=== PATIENT | male | born 1950 | race Hispanic/Latino ===

== ENCOUNTER 2018-06-05 05:16 | Inpatient (IN) | payer MEDICARE ==
[~2018-06-05] VITALS: Ht 167.6 cm; Wt 91.3 kg
[2018-06-05] VITALS (19 sets, daily range): BP systolic 114–189; BP diastolic 30–98
[2018-06-05 05:53] LABS: BASOPHILS % (AUTO) 0.6 % (0.0-5.0); EOSINOPHILS % (AUTO) 2.6 % (0.0-8.0); HEMATOCRIT 36.7 % (42-54); LYMPHOCYTES % (AUTO) 19.7 % (21.0-51.0); MEAN CORPUSCULAR HEMOGLOBIN 31.3 pg (27.0-33.0); MEAN CORPUSCULAR HGB CONC 32.8 g/dL (32.0-36.0); MEAN CORPUSCULAR VOLUME 95.6 fL (79-99); MONOCYTES % (AUTO) 12.4 % (3.0-13.0); NEUTROPHILS % (AUTO) 64.7 % (40.0-77.0); PLATELET COUNT (AUTO) 174 K/uL (130-400); RED BLOOD CELL COUNT(AUTO) 3.84 MIL/uL (4.50-6.20); RED CELL DISTRIBUTION WIDTH 15.8 % (11.0-15.5); WHITE BLOOD COUNT (AUTO) 9.7 K/uL (4.8-10.8)
[2018-06-05 06:06] LABS: CREATININE 6.3 mg/dL (0.5-1.5); POTASSIUM 4.3 mmol/L (3.5-5.1)
[2018-06-05 06:11] LABS: ALBUMIN 3.3 g/dL (3.5-5.0); B-TYPE NATRIURETIC PEPTIDE 1440 pg/mL (0-100); BILIRUBIN,TOTAL 0.3 mg/dL (0.2-1.0)
[2018-06-05] MEDS: PANTOPRAZOLE SODIUM 40 MG TABLET.DR PO SCH ×2 (08:02→17:04)
[2018-06-05] MEDS ORDERED: GLUCAGON 1MG KIT 1 MG ML IM PRN (08:15)
[2018-06-05] MEDS ORDERED: ACETAMINOPHEN 325 MG TAB PO PRN ×2 (08:15)
[2018-06-05] MEDS ORDERED: DEXTROSE 50%-WATER 50 ML DISP.SYRIN IV PRN (08:15)
[2018-06-05] MEDS ORDERED: SODIUM CHLORIDE 0.9% 10 ML VIAL IVP SCH (08:15)
[2018-06-05] MEDS ORDERED: ONDANSETRON HCL 4 MG/2 ML VIAL IVP PRN (08:15)
[2018-06-05] MEDS: ENOXAPARIN SODIUM 30 MG/0.3 ML SQ SCH (09:00)
--- NOTE | 2018-06-05 10:20 | NUR ---
PT WAS ADMITTED AND WILL BE HAVING DIALYSIS TODAY AND NURSE HERE TO DO DIALYSIS.
[2018-06-05] MEDS: INSULIN R PO SS1/2 SQ SCH ×3 (11:30→21:00)
[2018-06-05] MEDS ORDERED: APIX5TAB PO (12:10)
[2018-06-05] MEDS ORDERED: CALC667C10 PO (12:10)
[2018-06-05] MEDS ORDERED: METO200T49 PO (12:10)
[2018-06-05] MEDS ORDERED: PRAV40TA3 PO (12:10)
[2018-06-05 14:16] LABS: CREATINE KINASE, TOTAL 96 U/L (21-232); MYOGLOBIN 191 ng/mL (10-92); TROPONIN I < 0.04 ng/mL (0.00-0.06)
[2018-06-05] MEDS: PNEUMOCOCCAL VACCINE POLYVALENT 0.5 ML/VIAL [PPV] IM SCH ×2 (16:01→16:06)
--- NOTE | 2018-06-05 16:45 | NUR ---
DR. CORONEL HERE AND ORDERS NOTED, PT IS TO BE TRANSFERRED TO ROOM 230.
[2018-06-05] MEDS: CALCIUM ACETATE 667 MG CAPSULE PO SCH (17:04)
[2018-06-05] MEDS ORDERED: INSU100V12 SQ (18:08)
--- NOTE | 2018-06-05 18:22 | NUR ---
ARRIVAL TO ROOM 230 REPORT RECEIVED FROM AMEE BILLINGS RN. PT IS AAOX3 DENIES CP DENIES SOB DENIES NV. AMBULATING IN ROOM. FAMILY IS IN ROOM.
--- NOTE | 2018-06-05 20:00 | NUR ---
ASSESSMENT NOTE AAOX4 SITTING UP IN BED WITH SPOUSE AT THE BEDSIDE. BREATHING REGULAR AND UNLABORED ON ROOM AIR. ASSESSMENT COMPLETED. HEART BRADEN REPORTED 40'S PATIENT ASYMPTOMATIC. DENIES DIZZINESS, WEAKNESS, OR NAUSEA. DENIES PAIN. PLAN OF CARE DISCUSSED WITH PATIENT. REINFORCED SAFETY INSTRUCTION. NO ACUTE SIGNS OR SYMPTOMS OF DISTRESS NOTED. CALL LIGHT IN REACH
[2018-06-05] MEDS: SIMVASTATIN 20 MG TABLET PO SCH (20:37)
[2018-06-05] MEDS: APIXABAN 5 MG TABLET PO SCH (20:37)
[2018-06-05] MEDS ORDERED: ACETAMINOPHEN 325 MG TAB PO ONE (20:45)
[2018-06-05] MEDS ORDERED: DIPHENHYDRAMINE HCL 25 MG CAPSULE PO ONE (20:45)
--- NOTE | 2018-06-05 20:45 | NUR ---
BRADYCARDIA PATIENT HEART RATE SUSTAINED 30'S. CALLED DR CORONEL AND NOTIFIED OF BRADYCARDIA. ASYMPTOMATIC. PATIENT REQUEST SLEEP AID. ORDERS RECEIVED AND ENTERED INTO SYSTEM.
[2018-06-05] MEDS: INSULIN HUMULIN R 100 UNIT/ML 3ML SQ SCH (21:00)
[2018-06-05 22:28] LABS: CREATINE KINASE, TOTAL 92 U/L (21-232); MYOGLOBIN 211 ng/mL (10-92); TROPONIN I < 0.04 ng/mL (0.00-0.06)
[2018-06-06 03:40] VITALS: BP 152/62
--- NOTE | 2018-06-06 03:47 | NUR ---
LABS PATIENT REFUSING AM LABS. SPOKE TO PATIENT REGARDING ACUTE CARE SETTING AND DIAGNOSTICS LABS PROVIDE. PATIENT THEN AGREED FOR LABS.
[2018-06-06 04:07] LABS: HEMATOCRIT 37.1 % (42-54); MEAN CORPUSCULAR HEMOGLOBIN 31.8 pg (27.0-33.0); MEAN CORPUSCULAR HGB CONC 33.7 g/dL (32.0-36.0); MEAN CORPUSCULAR VOLUME 94.5 fL (79-99); NUCLEATED RED BLOOD CELLS 0.1 % (0.0-0.19); PLATELET COUNT (AUTO) 160 K/uL (130-400); RED BLOOD CELL COUNT(AUTO) 3.92 MIL/uL (4.50-6.20); RED CELL DISTRIBUTION WIDTH 15.7 % (11.0-15.5); WHITE BLOOD COUNT (AUTO) 9.5 K/uL (4.8-10.8)
[2018-06-06 04:14] LABS: HEMOGLOBIN A1C 8.1 % (4.0-6.0)
[2018-06-06 04:17] LABS: CREATININE 6.6 mg/dL (0.5-1.5); PHOSPHORUS 5.5 mg/dL (2.5-4.9); POTASSIUM 4.8 mmol/L (3.5-5.1)
[2018-06-06] MEDS: INSULIN HUMULIN R 100 UNIT/ML 3ML SQ SCH ×4 (05:36→21:00)
[2018-06-06] MEDS: INSULIN R PO SS1/2 SQ SCH ×4 (05:37→21:00)
[2018-06-06 07:49] VITALS: BP 151/60
[2018-06-06] MEDS: ENOXAPARIN SODIUM 30 MG/0.3 ML SQ SCH ×2 (09:00→09:35)
[2018-06-06] MEDS: FOLIC ACID/VITAMIN B COMP W-C 1 MG CAPSULE PO SCH (09:35)
[2018-06-06] MEDS: APIXABAN 5 MG TABLET PO SCH ×2 (09:35→21:43)
[2018-06-06] MEDS: VITAMIN E 400 UNIT CAPSULE PO SCH (09:35)
[2018-06-06] MEDS: CALCIUM ACETATE 667 MG CAPSULE PO SCH ×3 (09:36→17:04)
[2018-06-06 12:04] VITALS: BP 161/65
[2018-06-06] MEDS ORDERED: AMLODIPINE BESYLATE 5 MG TAB PO SCH (14:45)
--- NOTE | 2018-06-06 15:58 | NUR ---
cm note met with patient and states resides at home with spouse, independent and active at home. no dme. pt drives dc plan is back to home no needs. Addendum: 06/06/18 at 1559 by JASMINA HILLS CM Amended: Links added.
[2018-06-06 17:02] VITALS: BP 160/71
[2018-06-06 19:00] VITALS: BP 163/59
--- NOTE | 2018-06-06 19:45 | NUR ---
Dr. Rasmussen was called and notifeid about the consult he said he is aware of the consult because it was already called today, no new order received.
[2018-06-06] MEDS: SIMVASTATIN 20 MG TABLET PO SCH (21:43)
[2018-06-06 23:00] VITALS: BP 123/47
--- NOTE | 2018-06-07 01:10 | NUR ---
Dr. Rasmussen was called and notiifed of pt. new onset of afib rvr and aflutter.Received new order.Order carried out.
[2018-06-07] MEDS ORDERED: DILTIAZEM HCL 5 MG/ML 10 ML VIAL IV ONE (01:11)
[2018-06-07] MEDS ORDERED: DILTIAZEM 125MG+100 ML NS 125 ML IV SCH (01:15)
[2018-06-07] MEDS: DILTIAZEM HCL 5 MG/ML 10 ML VIAL IV SCH (01:29)
[2018-06-07 03:00] VITALS: BP 120/48
[2018-06-07 03:52] LABS: HEMATOCRIT 35.7 % (42-54); MEAN CORPUSCULAR HEMOGLOBIN 31.6 pg (27.0-33.0); MEAN CORPUSCULAR VOLUME 95.9 fL (79-99); PLATELET COUNT (AUTO) 177 K/uL (130-400); RED BLOOD CELL COUNT(AUTO) 3.72 MIL/uL (4.50-6.20); RED CELL DISTRIBUTION WIDTH 15.9 % (11.0-15.5); WHITE BLOOD COUNT (AUTO) 11.3 K/uL (4.8-10.8)
[2018-06-07 04:15] LABS: HEPATITIS Bs ANTIGEN SCREEN P Negative (Negative)
[2018-06-07 04:25] LABS: POTASSIUM 4.5 mmol/L (3.5-5.1); THYROID STIMULATING HORMONE 2.88 uIU/mL (0.36-3.74)
[2018-06-07] MEDS: PANTOPRAZOLE SODIUM 40 MG TABLET.DR PO SCH (04:53)
[2018-06-07] MEDS: INSULIN HUMULIN R 100 UNIT/ML 3ML SQ SCH ×4 (05:55→21:59)
[2018-06-07] MEDS: INSULIN R PO SS1/2 SQ SCH ×4 (05:56→21:00)
--- NOTE | 2018-06-07 07:44 | NUR ---
Pt. kept NPO since post midnight and demonstrated understanding,daughter to bedside.Pt. remained on CArdizem drip .Bedside report given to incoming NOD using SBAR all questions answered.
--- NOTE | 2018-06-07 07:50 | NUR ---
ASSESSMENT ENCOUNTERED PT UP IN CHAIR, A&OX3, CALM COOPERATIVE AND DOES NOT APPEAR TO BE IN ANY DISTRESS NOR ANY NEURO DEFICITS PRESENT. PT DENIES PAIN, SOB, NAUSEA. PT IS AMBULATORY, GAIT STEADY AND STRONG WITH STAND BY ASSIST. PT IS NPO FOR LEXISCAN. CALL LIGHT WITHIN REACH, FAMILY AT BEDSIDE.
[2018-06-07 07:57] VITALS: BP 120/55
[2018-06-07] MEDS: CALCIUM ACETATE 667 MG CAPSULE PO SCH ×3 (08:00→17:00)
[2018-06-07] MEDS ORDERED: REGADENOSON 0.4 MG/5 ML PF SYG IVP SCH (08:00)
[2018-06-07] MEDS: APIXABAN 5 MG TABLET PO SCH ×2 (09:00→20:20)
[2018-06-07] MEDS: METOPROLOL TARTRATE 25 MG TAB PO SCH ×2 (09:00→20:20)
[2018-06-07] MEDS: AMLODIPINE BESYLATE 5 MG TAB PO SCH (09:00)
[2018-06-07] MEDS: VITAMIN E 400 UNIT CAPSULE PO SCH (09:00)
[2018-06-07] MEDS: FOLIC ACID/VITAMIN B COMP W-C 1 MG CAPSULE PO SCH (09:00)
[2018-06-07 11:58] VITALS: BP 137/55
[2018-06-07 16:34] VITALS: BP 165/58
[2018-06-07 19:00] VITALS: BP 135/58
--- NOTE | 2018-06-07 20:06 | NUR ---
quality assurance/r&d lab technician called and notified pt HR converted to Afib /aflutter -120-140's.Went to check on patient ,he is pacing in his room and talking to someone on the phone.Advised pt. to sit and relax because his HR is high and irregular.pt easily do as advised.Pt. denies chestpain or any discomfort he said he feels okay.Will continue to monitor pt.
[2018-06-07] MEDS: SIMVASTATIN 20 MG TABLET PO SCH (20:20)
[2018-06-07 23:00] VITALS: BP 108/76
[2018-06-08] MEDS: DILTIAZEM HCL 5 MG/ML 10 ML VIAL IV SCH ×2 (01:15→20:20)
[2018-06-08 03:00] VITALS: BP 143/54
[2018-06-08 03:51] LABS: MEAN CORPUSCULAR HEMOGLOBIN 31.6 pg (27.0-33.0); MEAN CORPUSCULAR HGB CONC 33.3 g/dL (32.0-36.0); MEAN CORPUSCULAR VOLUME 94.8 fL (79-99); NUCLEATED RED BLOOD CELLS 0.1 % (0.0-0.19); PLATELET COUNT (AUTO) 163 K/uL (130-400); RED CELL DISTRIBUTION WIDTH 15.4 % (11.0-15.5); WHITE BLOOD COUNT (AUTO) 9.9 K/uL (4.8-10.8)
[2018-06-08 04:04] LABS: EOSINOPHILS % (MANUAL) 1 % (1-6); LYMPHOCYTES % (MANUAL) 24 % (22-44); MONOCYTES % (MANUAL) 6 % (2-9); SEGMENTED NEUTROPHILS % 69 % (40-70)
[2018-06-08 04:05] LABS: MAN.DIFF COMMENT-IMPRESSION MANUAL DIFFERENTIAL
[2018-06-08 04:07] LABS: CREATININE 7.4 mg/dL (0.5-1.5); MAGNESIUM 2.2 mg/dL (1.80-2.40); PHOSPHORUS 5.2 mg/dL (2.5-4.9); POTASSIUM 4.7 mmol/L (3.5-5.1)
[2018-06-08] MEDS: PANTOPRAZOLE SODIUM 40 MG TABLET.DR PO SCH (06:51)
[2018-06-08 07:00] VITALS: BP 151/61
[2018-06-08] MEDS: INSULIN HUMULIN R 100 UNIT/ML 3ML SQ SCH ×4 (07:21→21:28)
[2018-06-08] MEDS: VITAMIN E 400 UNIT CAPSULE PO SCH (07:24)
[2018-06-08] MEDS: METOPROLOL TARTRATE 25 MG TAB PO SCH (07:24)
[2018-06-08] MEDS: AMLODIPINE BESYLATE 5 MG TAB PO SCH (07:24)
[2018-06-08] MEDS: CALCIUM ACETATE 667 MG CAPSULE PO SCH ×3 (07:24→16:18)
[2018-06-08] MEDS: APIXABAN 5 MG TABLET PO SCH ×2 (07:25→21:27)
[2018-06-08] MEDS: FOLIC ACID/VITAMIN B COMP W-C 1 MG CAPSULE PO SCH (07:25)
--- NOTE | 2018-06-08 08:00 | NUR ---
ASSESSMENT PT IS AAOX4 DENIES CP DENIES SOB DENIES NV NO COMPLAINTS, SITTING UPRIGHT AT BEDSIDE, HOB UP AT 35 DEGREES. AM MEDS GIVEN, TOLERATED MEAL. SPOUSE IS AT BEDSIDE, CALL LIGHT WITHIN REACH.
[2018-06-08] MEDS ORDERED: METO25PO2 MC (08:48)
[2018-06-08] MEDS ORDERED: METO25TA6 PO (08:51)
[2018-06-08 11:00] VITALS: BP 121/56
--- NOTE | 2018-06-08 12:25 | NUR ---
HR EPISODES OF ALFUTTER >[address] BENITEZ. ORDERS RECEIVED.
--- NOTE | 2018-06-08 12:26 | NUR ---
STATUS PT IS AAOX4 DENIES CP DENIES SOB DENIES NV DENIES FEELING PALPITATIONS. HE SAYS THE MONITOR IS WRONG AND HE DOENS'T HAVE A HIGH HR. I SHOWED HIM THE EKG STRIP AND LET HIM KNOW DR BENITEZ GAVE ORDERS. AWARE AND AGREES.
[2018-06-08] MEDS ORDERED: METOPROLOL TARTRATE 25 MG TAB PO SCH (12:30)
[2018-06-08 16:00] VITALS: BP 140/54
--- NOTE | 2018-06-08 17:30 | NUR ---
Nutrition Assessment: Pt triggered for nutrition screen based on LOS. Pt is on a 75 gm CCD/Renal dialysis diet with 1.5 L fluid restriction. Pt with noted non compliance with diet and fluid intake. Labs reviewed. BMI 31.8 (obese). LBM 06/06/18. Pt with no skin breakdown. RD to monitor po intake. Consult RD as needed. Addendum: 06/08/18 at [address] Amended: Links added.
[2018-06-08 19:31] VITALS: BP 150/84
[2018-06-08] MEDS: SIMVASTATIN 20 MG TABLET PO SCH (21:27)
[2018-06-08] MEDS: METOPROLOL TARTRATE 50 MG TAB PO SCH (21:27)
[2018-06-08 23:56] VITALS: BP 127/83
[2018-06-09 03:55] VITALS: BP 169/53
[2018-06-09 04:07] LABS: HEMATOCRIT 35.7 % (42-54); MEAN CORPUSCULAR HEMOGLOBIN 31.5 pg (27.0-33.0); MEAN CORPUSCULAR HGB CONC 33.2 g/dL (32.0-36.0); MEAN CORPUSCULAR VOLUME 94.9 fL (79-99); PLATELET COUNT (AUTO) 170 K/uL (130-400); RED BLOOD CELL COUNT(AUTO) 3.76 MIL/uL (4.50-6.20); RED CELL DISTRIBUTION WIDTH 15.6 % (11.0-15.5); WHITE BLOOD COUNT (AUTO) 10.7 K/uL (4.8-10.8)
[2018-06-09 04:22] LABS: MAGNESIUM 2.2 mg/dL (1.80-2.40); POTASSIUM 4.9 mmol/L (3.5-5.1)
[2018-06-09] MEDS: INSULIN HUMULIN R 100 UNIT/ML 3ML SQ SCH ×2 (06:23→11:07)
[2018-06-09] MEDS ORDERED: METO50TA18 PO (06:23)
[2018-06-09 07:00] VITALS: BP 125/52
[2018-06-09] MEDS: PANTOPRAZOLE SODIUM 40 MG TABLET.DR PO SCH (07:46)
[2018-06-09] MEDS: METOPROLOL TARTRATE 50 MG TAB PO SCH (07:46)
[2018-06-09] MEDS: APIXABAN 5 MG TABLET PO SCH (07:46)
[2018-06-09] MEDS: VITAMIN E 400 UNIT CAPSULE PO SCH (07:46)
[2018-06-09] MEDS: CALCIUM ACETATE 667 MG CAPSULE PO SCH ×2 (07:46→11:01)
[2018-06-09] MEDS: AMLODIPINE BESYLATE 5 MG TAB PO SCH (07:46)
[2018-06-09] MEDS: FOLIC ACID/VITAMIN B COMP W-C 1 MG CAPSULE PO SCH (07:46)
--- NOTE | 2018-06-09 08:00 | NUR ---
ASSESSMENT PT IS AAOX4 DENIES CP DENIES SOB DENIES NV NO COMPLAINTS. AM MEDS TAKEN. CALL LIGHT WITHIN REACH.
[2018-06-09] MEDS ORDERED: APIX2.5T PO (09:04)
[2018-06-09] MEDS ORDERED: APIXABAN 2.5 MG TABLET PO SCH (09:15)
--- NOTE | 2018-06-09 10:20 | NUR ---
DIALYSIS AT BEDSIDE
[2018-06-09 11:00] VITALS: BP 141/77
--- NOTE | 2018-06-09 14:48 | NUR ---
DISCHARGE PATIENT AND FAMILY VERBALIZE DC INSTRUCTIONS UNDERSTANDING AGREE TO TAKE MEDIATIONS ORDERED, AGREE TO FOLLOW UP WITH DR BENITEZ, YUNIEL, AND DR CORONEL. PIV REMOVED CATH TIP INTACT. ALL BELONGINGS TAKEN, TELE PACK REMOVED.
== END 2018-06-09 15:00 | disposition home or self-care (01) | DRG 291 ==
LOC: EDH 05:16 → EDHIP 07:30 → 2BH 10:16 → 2AH 18:08
PROVIDERS: ADMIT Internal Medicine Nephrology; ATTEND Internal Medicine Nephrology
PROC: 5A1D70Z Performance of Urinary Filtration, Intermittent, Less than 6 Hours Per Day (ICD-10-PCS; 2018-06-05)
PROC: 3E0234Z Introduction of Serum, Toxoid and Vaccine into Muscle, Percutaneous Approach (ICD-10-PCS; 2018-06-05)
PROC: 5A1D70Z Performance of Urinary Filtration, Intermittent, Less than 6 Hours Per Day (ICD-10-PCS; 2018-06-07)
PROC: 5A1D70Z Performance of Urinary Filtration, Intermittent, Less than 6 Hours Per Day (ICD-10-PCS; principal; 2018-06-09)
DX: I13.2 Hypertensive heart and chronic kidney disease with heart failure and with stage 5 chronic kidney disease, or end stage renal disease (principal); N18.6 End stage renal disease; I50.33 Acute on chronic diastolic (congestive) heart failure; I48.92 Unspecified atrial flutter; E11.22 Type 2 diabetes mellitus with diabetic chronic kidney disease; I48.0 Paroxysmal atrial fibrillation; D64.9 Anemia, unspecified; E78.5 Hyperlipidemia, unspecified; I25.10 Atherosclerotic heart disease of native coronary artery without angina pectoris; T44.7X5A Adverse effect of beta-adrenoreceptor antagonists, initial encounter; I49.5 Sick sinus syndrome; I42.9 Cardiomyopathy, unspecified; Z99.2 Dependence on renal dialysis; Z91.19 Patient's noncompliance with other medical treatment and regimen; Z79.01 Long term (current) use of anticoagulants; Y92.89 Other specified places as the place of occurrence of the external cause; Z23 Encounter for immunization; Z79.84 Long term (current) use of oral hypoglycemic drugs
CPT/HCPCS: 36415; 71046; 78452; 80048; 80053; 82040; 82550; 82948; 83036; 83735; 83874; 83880; 84100; 84443; 84484; 85025; 85027; 86701; 86704; 86706; 87340; 87390; 87520; 87804; 90732; 90935; 93005; 93017; 93306; 96374; A9500; G0378; J1650; J1815; J2405; J2785; Q0163

== ENCOUNTER 2018-07-25 19:52 | Inpatient (IN) | payer MEDICARE | END 2018-07-29 14:10 | disposition home or self-care (01) | LOC: EDH 19:52 → EDHIP 21:30 → 2AH 23:53 | DX: E87.5 Hyperkalemia (principal); N18.6 End stage renal disease; N17.9 Acute kidney failure, unspecified; I50.42 Chronic combined systolic (congestive) and diastolic (congestive) heart failure; I13.2 Hypertensive heart and chronic kidney disease with heart failure and with stage 5 chronic kidney disease, or end stage renal disease; E11.22 Type 2 diabetes mellitus with diabetic chronic kidney disease; I49.5 Sick sinus syndrome; I48.0 Paroxysmal atrial fibrillation; Z99.2 Dependence on renal dialysis; I25.10 Atherosclerotic heart disease of native coronary artery without angina pectoris ==

== ENCOUNTER 2018-11-25 05:39 | Observation (INO) | payer MEDICARE ==
[2018-11-23 09:23] LABS: BASOPHILS % (AUTO) 0.8 % (0.0-5.0); EOSINOPHILS % (AUTO) 1.7 % (0.0-8.0); HEMATOCRIT 34.2 % (42-54); LYMPHOCYTES % (AUTO) 17.7 % (21.0-51.0); MEAN CORPUSCULAR HEMOGLOBIN 31.4 pg (27.0-33.0); MEAN CORPUSCULAR HGB CONC 33.7 g/dL (32.0-36.0); MEAN CORPUSCULAR VOLUME 93.1 fL (79-99); MONOCYTES % (AUTO) 10.9 % (3.0-13.0); NEUTROPHILS % (AUTO) 68.9 % (40.0-77.0); PLATELET COUNT (AUTO) 196 K/uL (130-400); RED BLOOD CELL COUNT(AUTO) 3.68 MIL/uL (4.50-6.20); RED CELL DISTRIBUTION WIDTH 14.5 % (11.0-15.5); WHITE BLOOD COUNT (AUTO) 10.3 K/uL (4.8-10.8)
[2018-11-23 09:32] LABS: CREATININE 7.8 mg/dL (0.5-1.5); POTASSIUM 4.8 mmol/L (3.5-5.1)
[2018-11-23 09:35] LABS: INR 1.08 (0.85-1.15); PROTHROMBIN TIME 11.3 SEC (9.6-11.6)
[2018-11-23 09:39] VITALS: BP 146/60
--- NOTE | 2018-11-24 15:00 | NUR ---
STEFFEN SCHULZ LVN ON PHONE. PER DR. VILLAFANA, PROCEED WITH PLANNED PROCEDURE. NO ORDERS RECEIVED.
[~2018-11-25] VITALS: Ht 172.7 cm; Wt 90.9 kg
[~2018-11-25 05:39] MED LIST: AMIO200T5 PO; AMLO5TAB9 PO; APIX5TAB PO; CALC667C10 PO; FOLI0.8T2 PO; INSU100V12 SQ; PRAV40TA3 PO
[2018-11-25] MEDS ORDERED: SODIUM CHLORIDE 0.9% 1000ML 1,000 ML IV ONE (06:32)
[2018-11-25 06:56] VITALS: BP 192/64
--- NOTE | 2018-11-25 07:18 | NUR ---
ASSESSMENT PT HERE FOR PROCEDURE. VERY ANXIOUS. DENIES ANY PAIN. AT BEDSIDE
[2018-11-25] MEDS ORDERED: BUPIVACAINE/PF 0.25% 50ML VIAL IJ ONE (10:10)
[2018-11-25] MEDS ORDERED: MIDAZOLAM HCL 1 MG/ML 2ML VIAL ONE ×2 (10:10→11:59)
[2018-11-25] MEDS ORDERED: MEPERIDINE-PF 25 MG/ML SYG ONE ×2 (10:10→11:59)
[2018-11-25] MEDS ORDERED: IOHEXOL-350 50ML VIAL IV ONE (10:10)
[2018-11-25] MEDS ORDERED: CEFAZOLIN SODIUM 1 GM VIAL ONE (10:10)
[2018-11-25] MEDS ORDERED: LIDOCAINE HCL 1% MDV 50ML VIAL ONE (10:10)
[2018-11-25 13:15] VITALS: BP 119/30
--- NOTE | 2018-11-25 13:15 | NUR ---
ASSESSMENT RECEIVED PT FROM BREAD AND PASTRY BAKER STAFF SANTANA HAYDEN. PT DROWSY BUT EASY TO WAKE UP. DRSG TO RIGHT UPPER CHEST DRY AND INTACT. SOFT TO TOUCH. RIGHT ARM IN SLING. AT BEDSIDE. IV HEPLOCK IN PLACE.
[2018-11-25 13:30] VITALS: BP 127/83
--- NOTE | 2018-11-25 13:30 | NUR ---
DR. MARBIN ZAZUETA NOTIFIED OF PTS ADMISSION.
--- NOTE | 2018-11-25 13:35 | NUR ---
REPORT REPORT GIVEN TO SANTANA RAMOS. PT DRSG TO RIGHT UPPER CHEST DRY AND INTACT. SOFT TOUCH. SLING IN PLACE. FAMILY AT BEDSIDE.
[2018-11-25 14:02] VITALS: BP 120/44
--- NOTE | 2018-11-25 14:02 | NUR ---
RECEIVED FROM CORYPT. AAOX3, RESP.'S EVEN AND UNLABORED. DROWSY BUT AROUSABLE. DENIES ANY CURRENT SOB, DENIES ANY CURRENT PAIN. RIGHT UPPER CHEST WITH LIGHT DRSG IN PLACE, D/I; AREA SOFT, NO ECCHYMOSIS OR HEMATOMA NOTED. RIGHT ARM SLING IN PLACE. INSTRUCTED PT. ON RIGHT ARM RESTRICTIONS/PRECAUTIONS; PT. AND THREE FEMALE FAMILY MEMBERS AT BEDSIDE VERBALIZED MUTUAL UNDERSTANDING. COMPLETE ASSESSMENT DONE. CALL LIGHT WITHIN REACH, VERBALIZED ABILITY TO USE. BED LOW, SIDE RAILS UP X3.
[2018-11-25] MEDS: CALCIUM ACETATE 667 MG CAPSULE PO SCH ×2 (14:19→21:09)
--- NOTE | 2018-11-25 14:30 | NUR ---
SITTING UP IN BED EATING WITH ASSISTANCE FROM FAMILY MEMBER AT BEDSIDE. CALL LIGHT WITHIN REACH.
[2018-11-25] MEDS: ACETAMINOPHEN-CODEINE 300/30MG TAB PO PRN (17:56)
[2018-11-25 19:23] VITALS: BP 122/60
[2018-11-25] MEDS ORDERED: MORPHINE SULFATE 2 MG/ML 1ML SYG IVP ONE (20:00)
[2018-11-25] MEDS ORDERED: ATORVASTATIN CALCIUM 10 MG TABLET PO SCH (21:00)
[2018-11-25] MEDS ORDERED: AMLODIPINE BESYLATE 5 MG TAB PO SCH (21:00)
[2018-11-25] MEDS ORDERED: INSULIN GLARGINE 100 UNITS/ML 10 ML VIAL SQ SCH (21:00)
[2018-11-25] MEDS ORDERED: FOLIC ACID/VITAMIN B COMP W-C 1 MG CAP/TAB PO SCH (21:00)
[2018-11-25] MEDS: AMIODARONE HCL 200 MG TABLET PO SCH (21:09)
[2018-11-25] MEDS ORDERED: MORPHINE SULFATE 2 MG/ML 1ML SYG IVP SCH (21:30)
[2018-11-26 00:22] VITALS: BP 121/49
[2018-11-26 03:27] VITALS: BP 137/75
[2018-11-26 07:00] VITALS: BP 135/61
--- NOTE | 2018-11-26 08:20 | NUR ---
SITTING UP IN BED W/O C/O. RIGHT UPPER CHEST WITH LIGHT DRSG IN PLACE; NO HEMATOMA NOTED TO INTERVENTIONIST AREA. RIGHT ARM WITH SLING IN PLACE. CALL LIGHT WITHIN REACH. FAMILY MEMBERS AT BEDSIDE.
[2018-11-26] MEDS: AMIODARONE HCL 200 MG TABLET PO SCH (08:27)
[2018-11-26] MEDS: CALCIUM ACETATE 667 MG CAPSULE PO SCH ×2 (08:27→14:35)
[2018-11-26 09:52] LABS: ALBUMIN 3.3 g/dL (3.5-5.0); BILIRUBIN,DIRECT 0.1 mg/dL (0.0-0.3); BILIRUBIN,TOTAL 0.4 mg/dL (0.2-1.0); TOTAL PROTEIN, SERUM 6.9 g/dL (6.0-8.3)
[2018-11-26 11:00] VITALS: BP 152/75
--- NOTE | 2018-11-26 12:03 | NUR ---
DR. Louis NUNEZ IN ROOM SPEAKING WITH PT. RE:PLAN OF CARE; QUESTIONS ANSWERED BY DR. NUNEZ.
--- NOTE | 2018-11-26 13:13 | NUR ---
DR. CORONEL IN ROOM WITH PT.
--- NOTE | 2018-11-26 13:50 | NUR ---
DR. OWENS, TERRESTRIAL ECOLOGIST FOR [facility], REVIEWING AM CXR. ORDER FOR D/C HOME RECEIVED.
[2018-11-26] MEDS: ACETAMINOPHEN-CODEINE 300/30MG TAB PO PRN (14:40)
--- NOTE | 2018-11-26 16:30 | NUR ---
HL REMOVED, CATHETER INTACT. DISCHARGE INSTRUCTIONS GIVEN TO PT. AND PT.'S SPOUSE AT BEDSIDE. EMPHASIZED RESTARTING ELIQUIS TOMORROW AM ORDERED BY DR. VILLAFANA, VERBALIZED MUTUAL UNDERSTANDING.
== END 2018-11-26 16:50 | disposition home or self-care (01) ==
LOC: DAH 05:39 → DAHIP 05:40 → DAH 05:40 → 2AH 14:16
PROVIDERS: ADMIT Internal Medicine; ATTEND Internal Medicine
DX: I49.5 Sick sinus syndrome (principal); I13.2 Hypertensive heart and chronic kidney disease with heart failure and with stage 5 chronic kidney disease, or end stage renal disease; N18.6 End stage renal disease; I50.22 Chronic systolic (congestive) heart failure; E11.21 Type 2 diabetes mellitus with diabetic nephropathy; E11.22 Type 2 diabetes mellitus with diabetic chronic kidney disease; E11.51 Type 2 diabetes mellitus with diabetic peripheral angiopathy without gangrene; E11.59 Type 2 diabetes mellitus with other circulatory complications; E87.5 Hyperkalemia; D64.9 Anemia, unspecified; E78.5 Hyperlipidemia, unspecified; I25.10 Atherosclerotic heart disease of native coronary artery without angina pectoris; Z83.3 Family history of diabetes mellitus; Z91.11 Patient's noncompliance with dietary regimen; Z91.19 Patient's noncompliance with other medical treatment and regimen; Z99.2 Dependence on renal dialysis; Z79.899 Other long term (current) drug therapy
CPT/HCPCS: 33208; 33225; 36415 ×2; 71045; 80048; 80076; 82948 ×6; 85025; 85610; 85730; 93005; 96372; 96374; A4215; A4216; A4221; A4222; A4223 ×3; A4606; C1769; C1898 ×2; C1900; C2621; G0257; G0378 ×28; J0690; J2175 ×2; J2250 ×2; J3490 ×2; J7030; Q9967; 90935; 99156; 99157

== ENCOUNTER 2018-12-07 22:28 | Observation (INO) | payer MEDICARE ==
[~2018-12-07] VITALS: Ht 167.6 cm; Wt 89.9 kg
[2018-12-07 22:53] LABS: BASOPHILS % (AUTO) 2.2 % (0.0-5.0); EOSINOPHILS % (AUTO) 1.4 % (0.0-8.0); HEMATOCRIT 30.1 % (42-54); LYMPHOCYTES % (AUTO) 12.5 % (21.0-51.0); MEAN CORPUSCULAR HEMOGLOBIN 31.7 pg (27.0-33.0); MEAN CORPUSCULAR HGB CONC 34.3 g/dL (32.0-36.0); MEAN CORPUSCULAR VOLUME 92.6 fL (79-99); MONOCYTES % (AUTO) 11.2 % (3.0-13.0); NEUTROPHILS % (AUTO) 72.7 % (40.0-77.0); PLATELET COUNT (AUTO) 223 K/uL (130-400); RED BLOOD CELL COUNT(AUTO) 3.25 MIL/uL (4.50-6.20); RED CELL DISTRIBUTION WIDTH 14.9 % (11.0-15.5); WHITE BLOOD COUNT (AUTO) 10.5 K/uL (4.8-10.8)
[2018-12-07 23:07] LABS: CREATININE 7.8 mg/dL (0.5-1.5); POTASSIUM 5.5 mmol/L (3.5-5.1)
[2018-12-07 23:08] LABS: INR 1.02 (0.85-1.15); PARTIAL THROMBOPLASTIN TIME 29.2 SEC (26.3-35.5); PROTHROMBIN TIME 10.7 SEC (9.6-11.6)
[2018-12-07 23:10] LABS: ALBUMIN 3.8 g/dL (3.5-5.0); BILIRUBIN,TOTAL 0.5 mg/dL (0.2-1.0); TOTAL PROTEIN, SERUM 7.3 g/dL (6.0-8.3)
[2018-12-08] MEDS ORDERED: LIDOCAINE HCL 2% VISCOUS 15 ML UDCUP ONE (00:36)
[2018-12-08] MEDS ORDERED: MAG HYDROX/AL HYDROX/SIMETH ES 30 ML SUSP UDCUP ONE (00:37)
[2018-12-08] MEDS ORDERED: FAMOTIDINE/PF 20 MG/2 ML VIAL IV ONE (00:37)
[2018-12-08] MEDS ORDERED: IOHEXOL 350 MG/ML 100ML INFUS..BTL IV ONE (01:30)
[2018-12-08] MEDS ORDERED: ONDANSETRON HCL 4 MG/2 ML VIAL ONE (02:43)
[2018-12-08] MEDS ORDERED: MORPHINE SULFATE 2 MG/ML 1ML SYG ONE (02:44)
[2018-12-08] MEDS ORDERED: SODIUM CHLORIDE 0.9% 100 ML IV ONE (02:45)
[2018-12-08] MEDS ORDERED: MORPHINE SULFATE 2 MG/ML 1ML SYG IVP PRN (04:00)
[2018-12-08] MEDS ORDERED: HYDRALAZINE HCL 20 MG/ML VIAL IV PRN (04:00)
[2018-12-08] MEDS ORDERED: HEPARIN SODIUM 5000UNIT/ML 1ML VIAL SQ SCH (04:00)
[2018-12-08] MEDS: NITROGLYCERIN 1GM/1 INCH PACKET TD SCH ×2 (04:00→12:04)
[2018-12-08 05:45] VITALS: BP 133/78
[2018-12-08 06:52] LABS: BASOPHILS % (AUTO) 0.5 % (0.0-5.0); EOSINOPHILS % (AUTO) 2.3 % (0.0-8.0); HEMATOCRIT 28.5 % (42-54); LYMPHOCYTES % (AUTO) 16.3 % (21.0-51.0); MEAN CORPUSCULAR HEMOGLOBIN 31.6 pg (27.0-33.0); MEAN CORPUSCULAR HGB CONC 34.2 g/dL (32.0-36.0); MEAN CORPUSCULAR VOLUME 92.4 fL (79-99); MONOCYTES % (AUTO) 12.8 % (3.0-13.0); NEUTROPHILS % (AUTO) 68.1 % (40.0-77.0); PLATELET COUNT (AUTO) 218 K/uL (130-400); RED BLOOD CELL COUNT(AUTO) 3.09 MIL/uL (4.50-6.20); RED CELL DISTRIBUTION WIDTH 14.7 % (11.0-15.5); WHITE BLOOD COUNT (AUTO) 8.7 K/uL (4.8-10.8)
[2018-12-08] MEDS: FAMOTIDINE/PF 20 MG/2 ML VIAL IV SCH ×2 (06:57→21:32)
[2018-12-08 07:00] VITALS: BP 125/87
[2018-12-08 07:09] LABS: HEMOGLOBIN A1C 8.2 % (4.0-6.0)
[2018-12-08 07:12] LABS: POTASSIUM 4.8 mmol/L (3.5-5.1)
[2018-12-08 07:13] LABS: ALBUMIN 3.3 g/dL (3.5-5.0); BILIRUBIN,TOTAL 0.4 mg/dL (0.2-1.0); TOTAL PROTEIN, SERUM 6.8 g/dL (6.0-8.3)
[2018-12-08 07:20] LABS: CREATININE 8.8 mg/dL (0.5-1.5)
--- NOTE | 2018-12-08 07:30 | NUR ---
ASSESSMENT PT IS AAOX4 DENIES CP DENIES SOB DENIES NV AT THIS TIME, RESTING IN BED. CALL LIGHT WITHIN REACH. PATIENT STATES HOME MEDS ARE SAME SINCE LAST TIME HE WAS HERE AND DISCHARGE.
[2018-12-08] MEDS ORDERED: ASPIRIN 81MG TAB.CHEW PO SCH (09:00)
[2018-12-08] MEDS ORDERED: FAMOTIDINE/PF 20 MG/2 ML VIAL IV SCH (09:00)
[2018-12-08 10:45] VITALS: BP 165/72
--- NOTE | 2018-12-08 10:46 | NUR ---
DC PLAN VISITED WITH PATIENT. PATIENT IN RESTROOM. PATIENT LIVES WITH SPOUSE. INDEPENDENT ABLE TO PERFORM ADL'S. PATIENT GOES TO [facility]. DC PLAN HOME. Addendum: 12/08/18 at 1048 by KIKE FERNANDEZ RN CM Amended: Links added.
--- NOTE | 2018-12-08 10:47 | NUR ---
DC PLAN ADDITION: SPOUSE, INDEPENDENT, PROVIDER 3, YUNIEL HANDLEY DC HOME. Addendum: 12/08/18 at 1048 by KIKE FERNANDEZ RN CM Amended: Links added.
[2018-12-08 16:00] VITALS: BP 140/72
--- NOTE | 2018-12-08 18:07 | NUR ---
DIALYSIS AT BEDSIDE
[2018-12-08 18:45] VITALS: BP 175/62
[2018-12-08] MEDS ORDERED: METR500T PO (19:05)
[2018-12-08] MEDS ORDERED: LEVO500T2 PO (19:05)
[2018-12-08] MEDS ORDERED: METRONIDAZOLE 500 MG TABLET PO SCH (20:00)
[2018-12-08] MEDS ORDERED: LEVOFLOXACIN 500 MG TABLET PO SCH (20:00)
--- NOTE | 2018-12-08 20:17 | NUR ---
NOTE HEMODIALYSIS COMPLETED. RECEIVED REPORT FROM DIALYSIS NURSE. PATIENT SAYS HE IS GOING TO EAT. I TOLD HIM I WILL WORK ON HIS PAPERS AND GET HIS MEDICATIONS.
[2018-12-08] MEDS ORDERED: ATORVASTATIN CALCIUM 10 MG TABLET PO SCH (21:00)
[2018-12-08] MEDS ORDERED: APIXABAN 5 MG TABLET PO SCH (21:00)
[2018-12-08] MEDS ORDERED: AMLODIPINE BESYLATE 5 MG TAB PO SCH (21:00)
[2018-12-08] MEDS ORDERED: CALCIUM ACETATE 667 MG CAPSULE PO SCH (21:00)
[2018-12-08] MEDS ORDERED: INSULIN GLARGINE 100 UNITS/ML 10 ML VIAL SQ SCH (21:00)
[2018-12-08] MEDS ORDERED: AMIODARONE HCL 200 MG TABLET PO SCH (21:00)
[2018-12-08] MEDS ORDERED: FOLIC ACID/VITAMIN B COMP W-C 1 MG CAP/TAB PO SCH (21:00)
--- NOTE | 2018-12-08 21:20 | NUR ---
NOTE PATIENT'S SPOUSE VOICING CONCERNS ABOUT DISCHARGE AND WANTS TO KNOW WHAT THE DOCTOR TOLD THE PATIENT AND WHY HE IS STILL FEELING SOME PAIN AND THAT SHE MIGHT HAVE TO BRING HIM BACK TO EMERGENCY IF HE CONTINUES WITH THE ABDOMINAL PAIN. LOOKED TO SEE IN COMPUTER DICTATION FROM MD, BUT DID NOT SEE A DICTATION YET. WENT TO NURSES STATION AND NOTICED DR. ZAZUETA THERE. APPROACHED HIM AND EXPLAINED. HE WENT INTO ROOM AND EXPLAINED TO PT'S SPOUSE THAT THE NATURE OF HIS PAIN THAT IS FROM GALLBLADDER SOURCE AND THE TREATMENT OPTIONS HE DISCUSSED WITH HER OF STAYING IN HOSPITAL, GETTING ANTIBIOTICS AND CONSULT A GENERAL SURGEON OR THE OTHER FOR HIM TO BE DISCHARGED TODAY WITH ANTIBIOTIC PRESCRIPTIONS AND TO FOLLOW UP WITH PCP WITH WHOM HE HAS ALREADY AN APPOINTMENT AND FOR HIM TO REFER HIM TO A SURGEON. PATIENT HAD CHOSEN THE 2ND OPTION. PATIENT AT THIS POINT VOICED THAT HE DOES NOT REMEMBER THAT HE TOLD HIM THAT AND DR. ZAZUETA INSISTED THAT HE DID. AT THIS POINT PATIENT WAS ASKED HE HE WANTED TO STAY AND FOLLOW THE OTHER OPTION AND HE SAID NO. HE WANTS TO GO HOME TODAY. DR. ZAZUETA REPEATED TO CLARIFY IF THIS IS THE CHOICE HE WANTS AND AGAIN HE SAID IT WAS. AFTERWARDS SPOUSE FELT SATISFIED WITH EXPLANATION AND ACKNOWLEDGES UNDERSTANDING OF INSTRUCTIONS AND EXPECTATIONS OF TREATMENT. SAYS SHE WILL GO WITH HIM TOMORROW TO HIS MEDICAL APPOINTMENT. DR. BEVERLY MENDEZ EXITED ROOM.
--- NOTE | 2018-12-08 21:47 | NUR ---
NOTE AFTER UPDATING DISCHARGE INSTRUCTION PACKET, REVIEWED IT WITH PATIENT. HE LISTENED ATTENTIVELY. ASKED NO QUESTIONS. REMOVED IV AND HELD PRESSURE FOR SOME MINUTES. ONCE FINISHED ASKED IF SHE HAS QUESTIONS AND SHE SAID SHE HAD NO ADDITIONAL QUESTIONS.
--- NOTE | 2018-12-08 21:56 | NUR ---
NOTE PATIENT DISCHARGED HOME. SPOUSE ACCOMPANYING. BROACHING MACHINE SET UP OPERATOR TOOK TO ENTRANCE VIA WHEELCHAIR.
[2018-12-10 07:14] LABS: HEPATITIS A ANTIBODY IGM Negative (Negative); HEPATITIS B CORE IGM Negative (Negative); HEPATITIS Bs ANTIGEN SCREEN P Negative (Negative)
[2018-12-13] MEDS ORDERED: LEVO500T2 PO (18:06)
== END 2018-12-08 21:56 | disposition home or self-care (01) ==
LOC: EDH 22:28 → EDHIP 12-08 03:33 → 2DH 12-08 05:38
PROVIDERS: ADMIT Internal Medicine; ATTEND Internal Medicine
DX: R07.89 Other chest pain (principal); I12.0 Hypertensive chronic kidney disease with stage 5 chronic kidney disease or end stage renal disease; E11.22 Type 2 diabetes mellitus with diabetic chronic kidney disease; E11.21 Type 2 diabetes mellitus with diabetic nephropathy; N18.6 End stage renal disease; R00.0 Tachycardia, unspecified; I25.10 Atherosclerotic heart disease of native coronary artery without angina pectoris; E78.5 Hyperlipidemia, unspecified; D64.9 Anemia, unspecified; K82.4 Cholesterolosis of gallbladder; K76.0 Fatty (change of) liver, not elsewhere classified; I45.81 Long QT syndrome; I48.91 Unspecified atrial fibrillation; E11.51 Type 2 diabetes mellitus with diabetic peripheral angiopathy without gangrene; Z91.11 Patient's noncompliance with dietary regimen; Z91.15 Patient's noncompliance with renal dialysis; Z91.19 Patient's noncompliance with other medical treatment and regimen; Z99.2 Dependence on renal dialysis; Z79.4 Long term (current) use of insulin; Z79.899 Other long term (current) drug therapy
CPT/HCPCS: 36415 ×2; 71045; 71275; 76700; 80053 ×2; 80061; 80074; 83036; 83605; 83735; 84484 ×3; 85025 ×2; 85610; 85730; 87040 ×2; 93005 ×2; 96374; 99284; G0378 ×18; J2405; J3490 ×2; Q9967; 90935

== ENCOUNTER 2018-12-15 10:07 | Day surgery (SDC) | payer MEDICARE ==
[2018-12-13 16:38] LABS: BASOPHILS % (AUTO) 0.8 % (0.0-5.0); EOSINOPHILS % (AUTO) 2.3 % (0.0-8.0); HEMATOCRIT 29.2 % (42-54); LYMPHOCYTES % (AUTO) 10.8 % (21.0-51.0); MEAN CORPUSCULAR HGB CONC 34.1 g/dL (32.0-36.0); MONOCYTES % (AUTO) 13.7 % (3.0-13.0); NEUTROPHILS % (AUTO) 72.4 % (40.0-77.0); PLATELET COUNT (AUTO) 200 K/uL (130-400); RED BLOOD CELL COUNT(AUTO) 3.11 MIL/uL (4.50-6.20); RED CELL DISTRIBUTION WIDTH 15.2 % (11.0-15.5)
[2018-12-13 16:44] LABS: INR 1.15 (0.85-1.15); PARTIAL THROMBOPLASTIN TIME 30.6 SEC (26.3-35.5)
[2018-12-13 16:45] LABS: ALBUMIN 3.6 g/dL (3.5-5.0); BILIRUBIN,TOTAL 0.5 mg/dL (0.2-1.0); TOTAL PROTEIN, SERUM 7.2 g/dL (6.0-8.3)
[2018-12-13 16:48] LABS: CREATININE 8.4 mg/dL (0.5-1.5)
[2018-12-13 17:11] VITALS: BP 126/49
--- NOTE | 2018-12-13 18:00 | NUR ---
LATE ENTRY REPORTED TO DOCTOR BRITO OF PATIENT TAKING ELIQUIS THIS MORNING AROUND SEVEN AM, ALSO ADVISED DOCTOR BRITO OF LABS H/H 9.9, 29.2, PT 12.0, POTASSIUM OF 5.0 , BUN 52, WEATHER ANALYST 8.4. MD AWARE OF LABS PT IS DIALYSIS PT AND DOCTOR BRITO WAS AWARE PT LAST DAY OF DIALYSIS WAS ON 12/12/18. PER DOCTOR DARYL NEED TO RESCHEDULED FOR 12/15/18 AT NOON AND PT NEEDS TO GO TO DIALYSIS ON 12/14/18. DISCUSSED THE PLAN WITH PATIENT NO CONCERNS, PATIENT AND SONS WERE ADVISED TO MAKE SURE PATIENT GOES TO DIALYSIS 12/14/2018 AND IF THEY HAVE ANY QUESTIONS TO CONTACT US.
[2018-12-14] MEDS: CEFAZOLIN SODIUM 1 GM VIAL IVP SCH (06:00)
[2018-12-15] VITALS (18 sets, daily range): BP systolic 107–141; BP diastolic 39–72
[~2018-12-15] VITALS: Ht 170.2 cm; Wt 90.9 kg
[~2018-12-15 10:07] MED LIST changes: -FOLI0.8T2 PO; +LEVO500T2 PO; +METR500T PO
--- NOTE | 2018-12-15 11:10 | NUR ---
SKIN INTEGRITY:O NOTED TO MID UPPER ABDOMEN LIGHT YELLOWISH, GREENISH AND PURPLE DISCOLORATION APPROXIMATELY 10X9 CM, PURPLISH DISCOLORATION RT UPPER CHEST MEASURING APPROXIMATELY 13X6 CM, BELOW RT SIDE NIPPLE PURPLISH DISCOLORATION MEASURING APPROXIMATELY 17X3 CM. PATIENT STATED ALL RELATED TO PACEMAKER PLACEMENT DONE NOVEMBER 25, 2018.
--- NOTE | 2018-12-15 11:10 | NUR ---
POTENTIAL FOR INFECTION: SHAVED ENTIRE ABDOMEN PER DESTINEY PARK.
[2018-12-15] MEDS ORDERED: SODIUM CHLORIDE 0.9% 1000ML 1,000 ML IV ONE (11:52)
[2018-12-15] MEDS ORDERED: CEFAZOLIN SODIUM 1 GM VIAL ONE (11:52)
[2018-12-15] MEDS ORDERED: BUPIVACAINE/PF 0.5% 10ML VIAL ONE (13:48)
[2018-12-15] MEDS ORDERED: FENTANYL CITRATE PF 50 MCG/1 ML 2ML VIAL ONE (14:11)
[2018-12-15] MEDS ORDERED: PROPOFOL 10 MG/ML 20ML VIAL IV ONE (14:11)
[2018-12-15] MEDS ORDERED: ROCURONIUM 10MG/1ML SYR 10 MG/ML ML ONE (14:11)
[2018-12-15] MEDS ORDERED: LIDOCAINE PF 2% 5ML ABBOJECT ONE (14:11)
[2018-12-15] MEDS ORDERED: MIDAZOLAM HCL 1 MG/ML 2ML VIAL ONE (14:11)
[2018-12-15] MEDS ORDERED: GLYCOPYRROLATE 1 MG/5 ML SYRINGE ONE (14:29)
[2018-12-15] MEDS ORDERED: ONDANSETRON HCL 4 MG/2 ML VIAL ONE (14:30)
[2018-12-15] MEDS ORDERED: NEOSTIGMINE 5MG/5ML SYR IV ONE (14:30)
[2018-12-15] MEDS: CEFAZOLIN SODIUM 1 GM VIAL IVP SCH (14:41)
--- NOTE | 2018-12-15 16:39 | NUR ---
ASSESSMENT RECEIVED PT FROM PACU STAFF SANTANA CORNELL. LARGE, ECCHYMOSIS NOTED TO ABDOMEN, CHEST. PT STATES THAT WAS FROM PACEMAKER PLACEMENT DONE IN NOVEMBER. ABD SOFT TO TOUCH, ROUND. BS X4 PRESENT. ABD DRSG X4 DRY AND INTACT. NO BLEEDING, OOZING NOTED TO SITE. AT BEDSIDE
--- NOTE | 2018-12-15 17:15 | NUR ---
DISCHARGE ORAL AND WRITTEN DISCHARGE INSTRUCTIONS GIVEN TO PT AND PTS ALONG WITH PRESCRIPTION. INSTRUCTED ON IMPORTANCE OF MONITORING FOR S/S OF INFECTION. BOTH VERBALIZED UNDERSTANDING.
[2018-12-21] MEDS ORDERED: METO25 PO (14:53)
[2018-12-21] MEDS ORDERED: TYL3 PO (14:53)
[2018-12-21] MEDS ORDERED: METO5 PO (14:53)
== END 2018-12-15 17:25 | disposition home or self-care (01) ==
LOC: DAH 10:07
PROVIDERS: ATTEND Student in an Organized Health Care Education/Training Program
DX: K81.1 Chronic cholecystitis (principal); I12.0 Hypertensive chronic kidney disease with stage 5 chronic kidney disease or end stage renal disease; E11.22 Type 2 diabetes mellitus with diabetic chronic kidney disease; N18.6 End stage renal disease; I11.9 Hypertensive heart disease without heart failure; Z79.01 Long term (current) use of anticoagulants; Z79.899 Other long term (current) drug therapy; Z79.1 Long term (current) use of non-steroidal anti-inflammatories (NSAID); Z87.891 Personal history of nicotine dependence; Z98.890 Other specified postprocedural states; I25.10 Atherosclerotic heart disease of native coronary artery without angina pectoris; Z95.0 Presence of cardiac pacemaker
CPT/HCPCS: 36415 ×2; 47562; 80053; 82948 ×2; 84132; 85025; 85610; 85730; 88304; 93005; A4215; A4221; A4222; A4223; A4649 ×4; A4663; A4930 ×2; A6206; A6207; C1769 ×3; J0690; J2001; J2250; J2405; J2704; J2710; J3010; J3490 ×2; J7030 ×2